=== PATIENT | female | born 1990 | race Caucasian/White ===

== ENCOUNTER 2018-09-08 20:06 | Emergency (ER) | payer MEDICAID ==
[~2018-09-08] VITALS: Ht 167.6 cm; Wt 54.4 kg
[2018-09-08 20:14] VITALS: BP_SYST 167
[2018-09-08] MEDS ORDERED: ONDANSETRON 4 MG ODT TAB PO ONE (20:45)
[2018-09-08] MEDS ORDERED: KETOROLAC TROMETHAMINE 60 MG/2 ML VIAL IM ONE (20:45)
[2018-09-08] MEDS ORDERED: NACL 0.9% 1,000 ML IV ONE (20:50)
[2018-09-08] MEDS ORDERED: ONDANSETRON HCL 4 MG/2 ML VIAL IVP ONE (21:00)
[2018-09-08] MEDS ORDERED: KETOROLAC TROMETHAMINE 30 MG VIAL IVP ONE (21:00)
[2018-09-08 22:15] VITALS: BP_SYST 118
== END 2018-09-08 22:15 | disposition home or self-care (01) ==
LOC: SED 20:06
DX: R11.2 Nausea with vomiting, unspecified (principal); R51 Headache; R19.7 Diarrhea, unspecified
CPT/HCPCS: 81002; 96361; 96374; 96375; 99283; J1885; J2405; J7030